=== PATIENT | female | born 1970 | race Two or more races ===

== ENCOUNTER → 2021-09-21 | Outpatient (CLI) | payer OTHER ==
[2021-09-22 09:23] LABS: Hepatitis B Surface Antibody Negative (Negative)
== END | disposition home or self-care (01) ==
LOC: LAB 09:44
PROVIDERS: ATTEND Family Medicine
DX: Z77.21 Contact with and (suspected) exposure to potentially hazardous body fluids (principal)
CPT/HCPCS: 36415; 86703; 86706; 86803; 87340

== ENCOUNTER → 2021-10-19 | Outpatient (CLI) | payer OTHER ==
[2021-10-20 08:17] LABS: Hepatitis B Surface Antibody Negative (Negative)
== END | disposition home or self-care (01) ==
LOC: LAB 10:59
PROVIDERS: ATTEND Family Medicine
DX: Z77.21 Contact with and (suspected) exposure to potentially hazardous body fluids (principal)
CPT/HCPCS: 36415; 86703; 86706; 86803; 87340

== ENCOUNTER → 2022-04-05 | Outpatient (CLI) | payer OTHER ==
[2022-04-06 15:26] LABS: Hepatitis B Surface Antibody Positive (Negative)
== END | disposition home or self-care (01) ==
LOC: LAB 14:24
PROVIDERS: ATTEND Family Medicine
DX: Z77.21 Contact with and (suspected) exposure to potentially hazardous body fluids (principal)
CPT/HCPCS: 36415; 86703; 86706; 86803; 87340